=== PATIENT | female | born 1940 | race Caucasian/White ===

== ENCOUNTER 2016-10-04 15:35 | Inpatient (IN) | payer MEDICARE ==
[2016-10-04 16:00] VITALS: BMI 28.9
--- NOTE | 2016-10-04 16:57 | CP.PCM.HP ---
History of Present Illness - History of Present Illness History of Present Illness: 76 yo female with history of HTN, HLD, DM2 and recurrent Otitis Media admitted at [facility] because of 5 syncopal episodes in one month period. She claimed episodes usually happened when upright and ambulating and preceded with dizziness, nausea and cold sweat. She also was able to break the fall before touching the ground but all episodes were unwitnessed. The patient was sent to TCU for therapy even while awaiting results from other work ups. She additionally claimed to have loss over 10 lbs in the last month because of frequent feeling of fulness even though she ate very little. Present on Admission - Present on Admission Any Indicators Present on Admission: No History of DVT/PE: No History of Uncontrolled Diabetes: No Urinary Catheter: No Decubitus Ulcer Present: No Review of Systems - Review of Systems All systems: reviewed and no additional remarkable complaints except (aside from those mentioned above, 12 point system review were negative by me) Past Patient History - Past Medical History & Family History Past Medical History?: Yes - Past Social History Smoking Status: Former Smoker Chewing Tobacco Use: No Cigar Use: No Alcohol: None Drugs: Denies - CARDIAC Hx Hypertension: Yes - PULMONARY Hx Asthma: Yes Hx Sleep Apnea: Yes Other/Comment: Claimed she does not use C-PAP anymore "I don't need it anymore" - NEUROLOGICAL Hx Neurological Disorder: Yes Hx Alzheimer's Disease: (MEMORY LOSS) 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) Other/Comment: Claimed mind is clear now "I was given medication"my mind is clear now" - HEENT Hx HEENT Problems: Yes Hx Cataracts: Yes - RENAL Hx Chronic Kidney Disease: Yes Hx Kidney Stones: Yes (able to pass stone without surgery) - ENDOCRINE/METABOLIC Hx Endocrine Disorders: Yes Hx Diabetes Mellitus Type 2: Yes - HEMATOLOGICAL/ONCOLOGICAL Hx Blood Disorders: Yes Hx Anemia: Yes - INTEGUMENTARY Hx Dermatological Problems: No - MUSCULOSKELETAL/RHEUMATOLOGICAL Hx Arthritis: Yes Hx Falls: Yes (multiple falls) - GASTROINTESTINAL Hx Gastritis: Yes - GENITOURINARY/GYNECOLOGICAL Hx Genitourinary Disorders: Yes (HX.STONES) Hx Bladder Stone: Yes - PSYCHIATRIC Hx Psychophysiologic Disorder: Yes Hx Depression: Yes Hx Substance Use: No - SURGICAL HISTORY Hx Surgeries: Yes Hx Orthopedic Surgery: Yes (Both arms -after the fall around 2 years ago) Hx Tonsillectomy: Yes - ANESTHESIA Hx Anesthesia: Yes Hx Anesthesia Reactions: No Hx Malignant Hyperthermia: No Meds Allergies/Adverse Reactions: Allergies Allergy/AdvReac Type Severity Reaction Status Date / Time No Known Allergies Allergy Verified 10/04/16 15:39 Physical Exam - Constitutional Appears: No Acute Distress - Head Exam Head Exam: ATRAUMATIC - Eye Exam Eye Exam: absent: Scleral icterus - ENT Exam ENT Exam: Mucous Membranes Moist - Neck Exam Neck exam: Negative for: Meningismus - Respiratory Exam Respiratory Exam: Rhonchi. absent: Respiratory Distress - Cardiovascular Exam Cardiovascular Exam: REGULAR RHYTHM, +S1, +S2 - GI/Abdominal Exam GI & Abdominal Exam: Soft. absent: Tenderness - Rectal Exam Rectal Exam: Deferred - Extremities Exam Extremities exam: Negative for: calf tenderness, pedal edema - Back Exam Back exam: NORMAL INSPECTION - Neurological Exam Neurological exam: Alert, Oriented x3 - Psychiatric Exam Psychiatric exam: Normal Affect - Skin Skin Exam: Dry, Intact Results - Labs Labs: Laboratory Results - last 24 hr 10/04/16 16:11 POC Glucose (mg/dL) 113 H Assessment & Plan (1) Syncope Status: Acute Priority: High Comment: admit to TCU. refer to PT for evaluation and management. patient could not confirmed whether she actually passed out or just felt very dizzy. She claimed she was able protect herself and just tried to lay down on the ground. All episodes were unwitnessed. cardiac and neurologic work ups were negative. (2) CAD (coronary artery disease) Status: Chronic Comment: no chest pain or SOB. continue Plavix and statin (3) HTN (hypertension) Status: Chronic Comment: BP controlled without anti-hypertensive (4) DM2 (diabetes mellitus, type 2) Status: Chronic Comment: BS relatively controlled in spite on not taking diabetic medication. accuchjaiden CROFTS
[2016-10-04 17:30] VITALS: RESP 20
[2016-10-04] MEDS: Albuterol-Ipratrop 3 mg / 0.5 (3 ml) UD INH SCH (20:00)
[2016-10-05 06:49] LABS: BASO % 0.6 % (0.0-2.0); EOS # 0.4 K/uL (0.0-0.7); EOS % 4.8 % (0.0-4.0); HEMATOCRIT 33.2 % (34.0-47.0); LYMPH # 2.5 K/uL (1.0-4.3); LYMPH % 31.7 % (20.0-40.0); MEAN CELL VOLUME 78.9 fl (81.0-99.0); MEAN CORPUSCULAR HEMOGLOBIN 25.9 pg (27.0-31.0); MEAN CORPUSCULAR HGB CONC 32.8 g/dL (33.0-37.0); MEAN PLATELET VOLUME 7.9 fl (7.2-11.7); MONO # 0.8 K/uL (0.0-0.8); NEUT # 4.1 K/uL (1.8-7.0); NEUT % 52.9 % (50.0-75.0); RED CELL DISTRIBUTION WIDTH 17.1 % (11.5-14.5); WHITE BLOOD COUNT 7.7 K/uL (4.8-10.8)
[2016-10-05 07:01] LABS: BLOOD UREA NITROGEN 16 mg/dl (7-17); CALCIUM 9.7 mg/dL (8.4-10.2); CARBON DIOXIDE 27 mmol/L (22-30); CHLORIDE 104 mmol/L (98-107); GFR AFRICAN-AMERICAN > 60; GLUCOSE,RANDOM 96 mg/dL (65-105); SODIUM 142 mmol/l (132-148)
[2016-10-05] MEDS: Albuterol-Ipratrop 3 mg / 0.5 (3 ml) UD INH SCH ×2 (07:36→19:34)
[2016-10-05] MEDS: Pantoprazole 40 mg EC Tab PO SCH (08:53)
--- NOTE | 2016-10-05 16:49 | CP.PCM.CON ---
History of Present Illness - History of Present Illness History of Present Illness: This is a 76 year old female with medical h/o hTN,DM and syncopal episodes and admitted for c/o dizziness and psych consult requested as pt has h/o depression and currently prescribed lexapro 20 mg daily.pt denies any depression now and says she is stable on lexapro and denies side effects to meds.no stressors at this time and very happy to see her great grandson today. 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) Other/Comment: Claimed mind is clear now "I was given medication"my mind is clear now" - HEENT Hx HEENT Problems: Yes Hx Cataracts: Yes - RENAL Hx Chronic Kidney Disease: Yes Hx Kidney Stones: Yes (able to pass stone without surgery) - ENDOCRINE/METABOLIC Hx Endocrine Disorders: Yes Hx Diabetes Mellitus Type 2: Yes - HEMATOLOGICAL/ONCOLOGICAL Hx Blood Disorders: Yes Hx Anemia: Yes - INTEGUMENTARY Hx Dermatological Problems: No - MUSCULOSKELETAL/RHEUMATOLOGICAL Hx Arthritis: Yes Hx Falls: Yes (multiple falls) - GASTROINTESTINAL Hx Gastritis: Yes - GENITOURINARY/GYNECOLOGICAL Hx Genitourinary Disorders: Yes (HX.STONES) Hx Bladder Stone: Yes - PSYCHIATRIC Hx Psychophysiologic Disorder: Yes Hx Depression: Yes Hx Substance Use: No - SURGICAL HISTORY Hx Surgeries: Yes Hx Orthopedic Surgery: Yes (Both arms -after the fall around 2 years ago) Hx Tonsillectomy: Yes - ANESTHESIA Hx Anesthesia: Yes Hx Anesthesia Reactions: No Hx Malignant Hyperthermia: No Meds Allergies/Adverse Reactions: Allergies Allergy/AdvReac Type Severity Reaction Status Date / Time No Known Allergies Allergy Verified 10/04/16 15:39 - Medications Medications: Current Medications Albuterol/Ipratropium (Duoneb 3 Mg/0.5 Mg (3 Ml) Ud) 3 ml INH RBID BILL Last Admin: 10/05/16 07:36 Dose: 3 ml Atorvastatin Calcium (Lipitor) 10 mg PO DAILY [facility] Last Admin: 10/05/16 08:53 Dose: 10 mg Clopidogrel Bisulfate (Plavix) 75 mg PO DAILY [facility] Last Admin: 10/05/16 08:53 Dose: 75 mg Donepezil HCl (Aricept) 10 mg PO HS [facility] Last Admin: 10/04/16 21:32 Dose: 10 mg Escitalopram Oxalate (Lexapro) 20 mg PO DAILY [facility] Last Admin: 10/05/16 08:53 Dose: 20 mg Home Med (Ursodiol [Nohemi Forte]) 500 mg PO QID [facility] Pantoprazole Sodium (Protonix Ec Tab) 40 mg PO DAILY [facility] Last Admin: 10/05/16 08:53 Dose: 40 mg Physical Exam - Psychiatric Exam Psychiatric exam: Normal Affect, Normal Mood Additional comments: pt is calm and in good spirits.denies suicidal ideation.fair cognition,fair insight and fair judgement,. continue lexapro 20 mg daily and outpt psych follow up recommended. Results - Vital Signs Recent Vital Signs: Last Vital Signs Temp 98.8 F 10/05/16 16:14 Pulse 69 10/05/16 16:14 Resp 20 10/05/16 16:14 BP 142/85 10/05/16 16:14 Pulse Ox 95 10/05/16 16:14 - Labs Result Diagrams: 10/05/16 06:10 10/05/16 06:10 Labs: Laboratory Results - last 24 hr 10/04/16 10/05/16 10/05/16 20:25 05:52 06:10 WBC 7.7 RBC 4.20 Hgb 10.9 L Hct 33.2 L MCV 78.9 L MCH 25.9 L MCHC 32.8 L RDW 17.1 H Plt Count 386 MPV 7.9 Neut % (Auto) 52.9 Lymph % (Auto) 31.7 [place] % (Auto) 10.0 Eos % (Auto) 4.8 H Baso % (Auto) 0.6 Neut # 4.1 Lymph # 2.5 [place] # 0.8 Eos # 0.4 Baso # 0.0 Sodium Potassium Chloride Carbon Dioxide Anion Gap BUN Creatinine Est GFR ( Amer) Est GFR (Non-Af Amer) POC Glucose (mg/dL) 97 91 Random Glucose Calcium 10/05/16 10/05/1617 06:10 11:20 15:46 WBC RBC Hgb Hct MCV MCH MCHC RDW Plt Count MPV Neut % (Auto) Lymph % (Auto) [place] % (Auto) Eos % (Auto) Baso % (Auto) Neut # Lymph # [place] # Eos # Baso # Sodium 142 Potassium 4.0 Chloride 104 Carbon Dioxide 27 Anion Gap 15 BUN 16 Creatinine 0.8 Est GFR ( Amer) > 60 Est GFR (Non-Af Amer) > 60 POC Glucose (mg/dL) 244 H 115 H Random Glucose 96 Calcium 9.7
[2016-10-06] MEDS: Albuterol-Ipratrop 3 mg / 0.5 (3 ml) UD INH SCH ×2 (07:36→19:13)
[2016-10-06] MEDS: Pantoprazole 40 mg EC Tab PO SCH (08:50)
[2016-10-06] MEDS: URSODIOL 500 MG PO SCH ×3 (13:30→21:12)
[2016-10-07] MEDS: Albuterol-Ipratrop 3 mg / 0.5 (3 ml) UD INH SCH ×2 (07:28→19:33)
[2016-10-07] MEDS: URSODIOL 500 MG PO SCH ×4 (09:13→21:08)
[2016-10-07] MEDS: Pantoprazole 40 mg EC Tab PO SCH (09:13)
--- NOTE | 2016-10-07 16:38 | CP.PCM.PN ---
Subjective - Date & Time of Evaluation Date of Evaluation: 10/07/16 Time of Evaluation: 15:30 - Subjective Subjective: Patient seen and evaluated bedside. feeling much better.participating with PT and has more stable gait. Hempodynamically stable, afebrile. No acute issues overnight. 1 episode of diarrhea today Objective - Vital Signs/Intake and Output Vital Signs (last 24 hours): Temp Pulse Resp BP Pulse Ox 97.9 F 69 20 103/66 98 10/07/16 08:27 10/07/16 08:27 10/07/16 08:27 10/07/16 08:27 10/07/16 08:27 - Medications Medications: Current Medications Albuterol/Ipratropium (Duoneb 3 Mg/0.5 Mg (3 Ml) Ud) 3 ml INH RBID [facility] Last Admin: 10/07/16 07:28 Dose: 3 ml Atorvastatin Calcium (Lipitor) 10 mg PO DAILY [facility] Last Admin: 10/07/16 09:13 Dose: 10 mg Donepezil HCl (Aricept) 10 mg PO HS [facility] Last Admin: 10/06/16 21:13 Dose: 10 mg Escitalopram Oxalate (Lexapro) 20 mg PO DAILY [facility] Last Admin: 10/07/16 09:13 Dose: 20 mg Home Med (Ursodiol [Nohemi Forte]) 500 mg PO QID [facility] Last Admin: 10/07/16 14:33 Dose: 500 mg Pantoprazole Sodium (Protonix Ec Tab) 40 mg PO DAILY [facility] Last Admin: 10/07/16 09:13 Dose: 40 mg - Labs Labs: 10/05/16 06:10 10/05/16 06:10 - Constitutional Appears: Non-toxic, No Acute Distress - Head Exam Head Exam: ATRAUMATIC, NORMAL INSPECTION, NORMOCEPHALIC - Eye Exam Eye Exam: EOMI, Normal appearance, PERRL Pupil Exam: NORMAL ACCOMODATION - ENT Exam ENT Exam: Mucous Membranes Moist, Normal Exam - Neck Exam Neck Exam: Full ROM, Normal Inspection - Respiratory Exam Respiratory Exam: Clear to Ausculation Bilateral, NORMAL BREATHING PATTERN. absent: Rales, Rhonchi, Wheezes - Cardiovascular Exam Cardiovascular Exam: REGULAR RHYTHM, RRR, +S1, +S2. absent: JVD - GI/Abdominal Exam GI & Abdominal Exam: Soft, Normal Bowel Sounds. absent: Guarding, Tenderness, Rebound - Rectal Exam Rectal Exam: Deferred - Extremities Exam Extremities Exam: Full ROM, Normal Capillary Refill, Normal Inspection. absent : Calf Tenderness, Pedal Edema - Back Exam Back Exam: NORMAL INSPECTION - Neurological Exam Neurological Exam: Alert, Awake, CN II-XII Intact, Oriented x3 - Psychiatric Exam Psychiatric exam: Normal Affect - Skin Skin Exam: Dry, Intact, Normal Color, Warm Assessment and Plan - Assessment and Plan (Free Text) Assessment: 76 yo female with history of HTN, HLD, DM2 and recurrent Otitis Media was initially admitted at [facility] because of 5 syncopal episodes in one month period. She claimed episodes usually happened when upright and ambulating and preceded with dizziness, nausea and cold sweat. She also was able to break the fall before touching the ground but all episodes were unwitnessed. The patient was sent to TCU for gait training and physical therapy. 1. Syncope / gait imbalance Participating with PT and improving Follow up with physical therapist recommendations 2.CAD (coronary artery disease) Chronic , stable continue Plavix and statin 3. HTN (hypertension) BP controlled without anti-hypertensive 4. DM2 (diabetes mellitus, type 2) Chronic BS relatively controlled in spite on not taking diabetic medication. accuchek ACHS 5.Dementia ? with depression psych consulted on Lexapro and namenda 6.DVT prophylaxis SCd patient is ambulatory so no anticoagulation recommended 7. Mild anemia stable unclear etiology
[2016-10-08] MEDS: Albuterol-Ipratrop 3 mg / 0.5 (3 ml) UD INH SCH ×2 (07:30→19:31)
[2016-10-08] MEDS: URSODIOL 500 MG PO SCH ×4 (08:13→21:01)
[2016-10-08] MEDS: Pantoprazole 40 mg EC Tab PO SCH (08:14)
[2016-10-09] MEDS: Albuterol-Ipratrop 3 mg / 0.5 (3 ml) UD INH SCH ×2 (07:33→19:35)
[2016-10-09] MEDS: URSODIOL 500 MG PO SCH ×4 (08:54→21:20)
[2016-10-09] MEDS: Pantoprazole 40 mg EC Tab PO SCH (08:54)
--- NOTE | 2016-10-09 18:23 | CP.PCM.PN ---
Subjective - Date & Time of Evaluation Date of Evaluation: 10/09/16 Time of Evaluation: 13:20 - Subjective Subjective: Pt seen and examined. Liver biopsy request at [facility] cancelled because of patient's refusal. Objective - Vital Signs/Intake and Output Vital Signs (last 24 hours): Temp Pulse Resp BP Pulse Ox 97.7 F 73 20 129/73 99 10/09/16 16:47 10/09/16 16:47 10/09/16 16:47 10/09/16 16:47 10/09/16 08:07 - Medications Medications: Current Medications Albuterol/Ipratropium (Duoneb 3 Mg/0.5 Mg (3 Ml) Ud) 3 ml INH [facility]ID [facility] Last Admin: 10/09/16 07:33 Dose: 3 ml Atorvastatin Calcium (Lipitor) 10 mg PO DAILY@2100 [facility] Last Admin: 10/08/16 21:01 Dose: 10 mg Donepezil HCl (Aricept) 10 mg PO HS [facility] Last Admin: 10/08/16 21:01 Dose: 10 mg Escitalopram Oxalate (Lexapro) 20 mg PO DAILY [facility] Last Admin: 10/09/16 08:54 Dose: 20 mg Home Med (Ursodiol [Nohemi Forte]) 500 mg PO QID [facility] Last Admin: 10/09/16 17:19 Dose: 500 mg Pantoprazole Sodium (Protonix Ec Tab) 40 mg PO DAILY [facility] Last Admin: 10/09/16 08:54 Dose: 40 mg - Labs Labs: 10/05/16 06:10 10/05/16 06:10 - Constitutional Appears: No Acute Distress - Head Exam Head Exam: ATRAUMATIC - Eye Exam Eye Exam: absent: Scleral icterus - ENT Exam ENT Exam: Mucous Membranes Moist - Neck Exam Neck Exam: absent: Meningismus - Respiratory Exam Respiratory Exam: absent: Rhonchi, Wheezes, Respiratory Distress - Cardiovascular Exam Cardiovascular Exam: REGULAR RHYTHM, +S1, +S2 - GI/Abdominal Exam GI & Abdominal Exam: Soft. absent: Tenderness - Rectal Exam Rectal Exam: Deferred - Neurological Exam Neurological Exam: Alert, Oriented x3 - Psychiatric Exam Psychiatric exam: Normal Affect - Skin Skin Exam: Dry, Intact Assessment and Plan (1) Syncope Status: Acute (2) CAD (coronary artery disease) Status: Chronic (3) HTN (hypertension) Status: Chronic (4) DM2 (diabetes mellitus, type 2) Status: Chronic (5) Dementia Status: Chronic - Assessment and Plan (Free Text) Assessment: 76 yo female with history of HTN, HLD, DM2 and recurrent Otitis Media admitted initially at [facility] because of 5 syncopal episodes in a month period. Episodes usually happened when upright and ambulating, preceded with dizziness, nausea and cold sweat. She was able to break the fall before touching the ground and was not injured in the process. The patient was sent to TCU for gait training and physical therapy. 1. Syncope / gait imbalance Participating with PT and improving Follow up with physical therapist recommendations 2.CAD (coronary artery disease) Chronic, stable resume Plavix and statin 3. HTN (hypertension) BP controlled without anti-hypertensive 4. DM2 (diabetes mellitus, type 2) Chronic BS relatively controlled in spite on not taking diabetic medication. accuchek ACHS 5.Dementia ? with depression on Lexapro and Namenda
[2016-10-10] MEDS: Albuterol-Ipratrop 3 mg / 0.5 (3 ml) UD INH SCH ×2 (07:44→19:13)
[2016-10-10] MEDS: Pantoprazole 40 mg EC Tab PO SCH (08:13)
[2016-10-10] MEDS: URSODIOL 500 MG PO SCH ×4 (08:14→22:00)
[2016-10-11 08:15] VITALS: BP 126/74; PULSE 69; TEMP 98.1; O2SAT 100
[2016-10-11] MEDS: Albuterol-Ipratrop 3 mg / 0.5 (3 ml) UD INH SCH (09:00)
[2016-10-11] MEDS: URSODIOL 500 MG PO SCH ×2 (09:48→12:12)
[2016-10-11] MEDS: Pantoprazole 40 mg EC Tab PO SCH (09:48)
--- NOTE | 2016-10-11 12:49 | CP.PCM.DIS ---
Provider - Provider Date of Admission: 10/04/16 15:41 Attending physician: Federico Gramajo MD Primary care physician: Dr. Kulkarni Time Spent in preparation of Discharge (in minutes): 40 Hospital Course - Lab Results Lab Results: Most Recent Lab Values WBC 7.7 K/uL (4.8-10.8) 10/05/16 06:10 RBC 4.20 Mil/uL (3.80-5.20) 10/05/16 06:10 Hgb 10.9 g/dL (12.0-16.0) L 10/05/16 06:10 Hct 33.2 % (34.0-47.0) L 10/05/16 06:10 MCV 78.9 fl (81.0-99.0) L 10/05/16 06:10 MCH 25.9 pg (27.0-31.0) L 10/05/16 06:10 MCHC 32.8 g/dL (33.0-37.0) L 10/05/16 06:10 RDW 17.1 % (11.5-14.5) H 10/05/16 06:10 Plt Count 386 K/uL (130-400) 10/05/16 06:10 MPV 7.9 fl (7.2-11.7) 10/05/16 06:10 Neut % (Auto) 52.9 % (50.0-75.0) 10/05/16 06:10 Lymph % (Auto) 31.7 % (20.0-40.0) 10/05/16 06:10 [place] % (Auto) 10.0 % (0.0-10.0) 10/05/16 06:10 Eos % (Auto) 4.8 % (0.0-4.0) H 10/05/16 06:10 Baso % (Auto) 0.6 % (0.0-2.0) 10/05/16 06:10 Neut # 4.1 K/uL (1.8-7.0) 10/05/16 06:10 Lymph # 2.5 K/uL (1.0-4.3) 10/05/16 06:10 [place] # 0.8 K/uL (0.0-0.8) 10/05/16 06:10 Eos # 0.4 K/uL (0.0-0.7) 10/05/16 06:10 Baso # 0.0 K/uL (0.0-0.2) 10/05/16 06:10 Sodium 142 mmol/l (132-148) 10/05/16 06:10 Potassium 4.0 MMOL/L (3.6-5.0) 10/05/16 06:10 Chloride 104 mmol/L (98-107) 10/05/16 06:10 Carbon Dioxide 27 mmol/L (22-30) 10/05/16 06:10 Anion Gap 15 (10-20) 10/05/16 06:10 BUN 16 mg/dl (7-17) 10/05/16 06:10 Creatinine 0.8 mg/dL (0.7-1.2) 10/05/16 06:10 Est GFR ( Amer) > 60 10/05/16 06:10 Est GFR (Non-Af Amer) > 60 10/05/16 06:10 POC Glucose (mg/dL) 102 mg/dL (65-110) 10/11/16 10:37 Random Glucose 96 mg/dL (65-105) 10/05/16 06:10 Calcium 9.7 mg/dL (8.4-10.2) 10/05/16 06:10 - Hospital Course Hospital Course: 76 year old female who was admitted to [facility] on 10/04/16 for Rehab after she was evaluated for multiple issues at [facility]. Briefly her course at [facility] from 09/28/16 through 10/04/16 is the following: Patient evaluated for syncope. Cardiogenic causes ruled out. Pumping Plant Operator, Dr. Pierson, evaluated patient. If stenosis not detected on cardiac cath, patient may need implantable loop recorder. Patient to follow-up as an outpatient. ROMIs were negative x3. EKG showed NSR at rate of 74, left axis deviation. Patient had Kaylan Scan stress test in [address] Pierson which appears to have been normal. Patient had negative orthostatic vital signs. Blood pressure has been stable. Home antihypertensives were held as BP was normal without them. Patient was also evaluated for neurogenic cause of syncope. Patient seen by neurologist, Dr. Keys. Head CT was normal. Prolactin was 17.7. As patient, lost urine and vomitus, seizure is being considered. Patient will need to follow up EEG outpatient. Syncope may have been a result of polypharmacy. Patient's BP meds and diabetic meds were held as her glucose and BP were normal without them. Patient also has microcytic anemia with dark stools which may be cause of syncope. FOBT was negative. GI was consulted. Dr. Reina saw patient and wants patient to follow up outpatient on 10/12. They recommend continuing the PPI. Patient was also found to have a 2.7cm mass in posterior segment of right hepatic lobe concerning for malignancy v. abscess. Patient will need a biopsy outpatient and will need to follow up with GI outpatient for that. Infectious causes ruled out. No leukocytosis. CXR no acute pulmonary disease. UA negative. Urine culture negative. Syncope likely secondary to hypoglycemia or low BP as her medicatioons were held and these values were normal. Patient also treated for 11th rib fracture. with ice packs, spirometer Q1H and duonebs. Patient discharged to [facility] 10/04/16. She needs to get biopsy of liver mass and f/u with Neuro, GI and Cardio and her PMD. Currently upon FULL ROS: Small amount of bright red blood in stool this morning Nausea with her breakfast this morning NO episode of lightheadedness/dizziness NO new changes in vision NO new changes in hearing NO chest pain/palpitations this morning NO SOB/Cough this morning HEENT: NCA, EOMI, PERRLA, NO cervical/submandibular/supraclavicular lymphadenopathy, NO pharyngeal erythema/exudate, Oral Mucose and Nasal Turbinates are moist Cardio: NS1 and NS2, NO M/R/G Respiratory: CTA B/L, NO R/R/W GI: BSx4, SOft, NT, ND, NHSM, NO guarding/rebound tenderness Ext: NO Edema, Normal capillary refill, Pulses are strong and equal Neuro: CN II through XII are grossly intact Diagnoses: Syncope CAD HTN DM 2 Dementia Anemia Microcytic The following insructions will be provided to patient upon discharge: 1). Follow up with your Warp Knit Operator Dr. Cooney for further workup of the Liver Mass as well as a repeat of your Colonoscopy. 2). Follow up with Pumping Plant Operator Dr. Kev Pierson within 7 days 3). Follow up with Neurologist Dr. Keys for your history of Syncope 4). Follow up with your Ear/Nose/Throat doctor Dr. Colmenares for your history of long standing Left Ear Infection 5). Please follow up with your Primary Care Physician Dr. Kulkarni within 7 days so that your care may be coordinated by him. Please bring a copy of this discharge summary with you so that you may go over it with him. 6). You will need to be evaluated by the following specialists by obtaining referrals from Dr. Kulkarni: Wire Welder for further evaluation of Anemia Psychiatrist to monitor your history of Depression Vestibular Therapy for your history of Syncope (passing out) 5). Please take the following medications which you stated you had enough of at home: Lipitor 10 mg 1 tablet by mouth once a day Plavix 75 mg 1 tablet by mouth once a day Aricept 10 mg 1 tablet by mouth once a day at bedtime Lexapro 20 mg 1 tablet by mouth once a day Ursodiol 500 mg 1 tablet by mouth 4 times a day 6). A prescription is provided to you to purchase a nebulizer machine 7). Please call us back at [phone] after you get home today and ask to speak to Nurse Nadia to provide her with the information concerning the solution you are using for your nebulizer machine so that it may be called into your pharmacy. Brandyn Ward D.O. Discharge Exam - Head Exam Head Exam: ATRAUMATIC Discharge Plan - Follow Up Plan Condition: GOOD Disposition: HOME/ ROUTINE Instructions: Rib Fracture (DC), Syncope (DC), Syncope (GEN), Diabetes Mellitus Type 2 in Adults (DC), Chronic Hypertension (DC), Hypertension (DC), Hypertension (GEN)
== END 2016-10-11 14:15 | disposition home health service (06) | DRG 312 ==
LOC: H.TCU 15:41
PROC: 3E0F7GC Introduction of Other Therapeutic Substance into Respiratory Tract, Via Natural or Artificial Opening (ICD-10-PCS; principal; 2016-10-04)
PROC: F07M6FZ Therapeutic Exercise Treatment of Musculoskeletal System - Whole Body using Assistive, Adaptive, Supportive or Protective Equipment (ICD-10-PCS; 2016-10-05)
PROC: F08Z4FZ Home Management Treatment using Assistive, Adaptive, Supportive or Protective Equipment (ICD-10-PCS; 2016-10-05)
DX: R55 Syncope and collapse (principal); E11.22 Type 2 diabetes mellitus with diabetic chronic kidney disease; E11.649 Type 2 diabetes mellitus with hypoglycemia without coma; D50.9 Iron deficiency anemia, unspecified; I25.10 Atherosclerotic heart disease of native coronary artery without angina pectoris; I12.9 Hypertensive chronic kidney disease with stage 1 through stage 4 chronic kidney disease, or unspecified chronic kidney disease; N18.9 Chronic kidney disease, unspecified; Z87.891 Personal history of nicotine dependence; J45.909 Unspecified asthma, uncomplicated; G47.30 Sleep apnea, unspecified; Z87.442 Personal history of urinary calculi; F32.9 Major depressive disorder, single episode, unspecified; G30.9 Alzheimer's disease, unspecified; F02.80 Dementia in other diseases classified elsewhere, unspecified severity, without behavioral disturbance, psychotic disturbance, mood disturbance, and anxiety; Z87.81 Personal history of (healed) traumatic fracture; E78.5 Hyperlipidemia, unspecified